=== PATIENT | female | born 1945 | race Caucasian/White ===

== ENCOUNTER → 2024-11-30 08:43 | Outpatient (REF) | payer MEDICARE, OTHER, SELFPAY ==
[2024-11-30 09:38] LABS: Hematocrit 38.8 % (37.0-47.0); Hemoglobin 13.0 g/dL (12.0-16.0); Mean Corp Hgb Conc. 33.5 g/dL (33.0-37.0); Mean Corpuscular Volume 100.8 fL (81.0-99.0); Nucleated Red Blood Cells % 0 %; Platelet Count 291 10^3/uL (130-400); Red Cell Dist. Width 12.1 % (11.5-14.5)
[2024-11-30 09:53] LABS: ALT (SGPT) 13 U/L (0-35); AST (SGOT) 19 U/L (14-36); Albumin 4.6 g/dl (3.5-5.0); Alkaline Phosphatase 65 U/L (38-126); Blood Urea Nitrogen 18 mg/dl (7-17); Calcium 9.7 mg/dl (8.4-10.2); Carbon Dioxide 25 mmol/L (22-30); Chloride 105 mmol/L (98-107); Glucose 104 mg/dl (70-99); Magnesium 2.0 mg/dl (1.6-2.3); Potassium 4.6 mmol/L (3.5-5.1); Sodium 138 mmol/L (135-145); Total Protein 7.9 g/dl (6.3-8.2); eGFR > 60.00
[2024-11-30 09:54] LABS: INR 1.32; PT 16.9 Sec (11.4-14.6)
== END ==
LOC: SDSPAT 08:43
PROVIDERS: ATTENDING PHYSICIAN Internal Medicine Cardiovascular Disease; FAMILY PHYSICIAN Family Medicine; OTHER PHYSICIAN Internal Medicine Cardiovascular Disease
DX: I48.91 Unspecified atrial fibrillation (principal)
CPT/HCPCS: 36415; 75572; 80053; 83735; 85025; 85610; 86850; 86900; 86901; 93005; Q9967

== ENCOUNTER → 2024-12-01 09:35 | Outpatient (REF) | payer MEDICARE, OTHER, SELFPAY | LOC: DHSLP 09:35 | PROVIDERS: ATTENDING PHYSICIAN Internal Medicine Cardiovascular Disease; FAMILY PHYSICIAN Family Medicine | DX: G47.33 Obstructive sleep apnea (adult) (pediatric) (principal) | CPT/HCPCS: 95800 ==

== ENCOUNTER 2024-12-29 05:51 | Day surgery (SDC) | payer MEDICARE, OTHER, SELFPAY ==
[2024-11-30 09:14] VITALS: BMI 27.6
--- NOTE | 2024-11-30 10:27 | HPS.HSE ---
Family Physician
-
Family Physician: Radha Sanders
Chief Complaint
-
Paroxysmal atrial fibrillation.
History of Present Illness
The patient is a 79 year old female presenting today for paroxysmal atrial fibrillation. She does report symptoms of fatigue, decreased exercise tolerance, shortness of breath, and mild palpitations associated with this diagnosis. She was
officially diagnosed with this arrhythmia in 2022; however, she notes that her arrhythmia episodes as of recently have been worsening in terms of frequency and duration. She is on current pharmacological therapy with Metoprolol Succinate. She does
report compliance with Eliquis for oral anticoagulation due to a CHADS-VASc of 4. She notes that her current symptoms associated with her arrhythmia greatly interfere with her activities of daily living and overall impact her quality of life. She is
interested in pursuing pulmonary vein isolation for further arrhythmia management. She denies any complaints today such as chest pain, shortness of breath at rest, nausea, vomiting, diarrhea, lightheadedness, dizziness, cough, sore throat, or fever.
Medical History
Past Medical History
Past Medical History: Reports Other
Additional Past Medical History:
1. Paroxysmal atrial fibrillation, pharmacological therapy with Metoprolol Succinate and oral anticoagulation with Eliquis.
2. Hypertension.
3. Mild aortic insufficiency.
4. Suspected obstructive sleep apnea, sleep study advised.
5. Colon polyps.
6. Diverticulosis.
7. Spinal stenosis.
8. Osteoarthritis, status post right total hip arthroplasty, 2011, and left total hip arthroplasty 2013.
9. Gout.
10. History of recurrent epistaxis.
11. Osteopenia.
12. Hearing impairment bilaterally.
13. Daily alcohol.
Past Surgical History: Reports Other
Additional Past Surgical History:
1. Right total hip arthroplasty.
2. Left total hip arthroplasty.
3. x2.
4. Appendectomy.
5. [place] teeth extraction.
6. Bilateral cataract extraction.
7. Multiple colonoscopies.
Social History
Tobacco: Non-smoker
Alcohol: Daily (She reportedly drinks 2 Manhattans daily. )
Personal:
Living: Other (She lives with her and daughter in a 2 story home. )
Family History
Family History: Not pertinent
Allergies / Home Medications
Allergy/Medication List:
Home medications:
1. Eliquis 5 mg p.o. twice a day.
2. Probiotic 1 capsule p.o. every evening.
3. Metoprolol Succinate 75 mg p.o. twice a day.
4. Valsartan 80 mg p.o. daily.
Allergies: No known allergies.
Review of Systems
-
A 12 point ROS was completed and negative except as noted: Yes
Physical Exam
Vital Signs
Blood pressure 151/76. Heart rate 64. Respirations 18. Pulse ox 99% on room air.
Height 5 feet, 1 inch. Weight 66.2 kg. BMI 27.6.
Physical Exam
General: Well Developed, Well Nourished and No Apparent Distress
HEENT: NormoCephalic, Moist mucous membranes, Atraumatic and PERRLA
Respiratory: Clear
Cardiac: Regular Rhythm
GI: Soft, Non Tender and Non Distended
Musculoskeletal: No Edema and Normal Gait & Station
Skin: Warm and Dry
Neuro: AO x 3 and Nonfocal/grossly intact
Laboratory Results
-
DIAGNOSTIC STUDIES as of 11/30/2024: White blood cell count 4.8. Hemoglobin 13.0. Platelet count 291,000. PT 16.9. INR 1.32. Sodium 138. Potassium 4.6. BUN 18. Creatinine 0.8. Glucose 104. Calcium 9.7. Magnesium 2.0. AST 19. ALT 13. Albumin 4.6.
Type and screen O positive.
EKG 11/30/2024: Sinus bradycardia with sinus arrhythmia. Otherwise normal EKG.
Chest CT 11/30/2024: Short segment common vestibule for the left superior and inferior pulmonary veins, fairly commonly seen and considered normal variant. No evidence for left atrial thrombus.
Echocardiogram 05/14/2023: Ejection fraction is 50-55%. Mild left ventricular hypertrophy. Mild aortic insufficiency. RVSP 26 mmHg.
Impression/Plan
-
IMPRESSION/PLAN:
1. Paroxysmal atrial fibrillation: The patient is in need of pulmonary vein isolation with Dr. Earnest Wilson on 12/29/2024. The benefits and risks of the procedure have been explained to the patient. The patient understands these risks and wishes to
proceed. She will not be required to undergo a pre-procedural transesophageal echocardiogram as she has been compliant with her home oral anticoagulation. She is aware to continue Eliquis uninterrupted prior to her ablation. She will take no
medications the morning of her ablation.
[2024-12-29] VITALS (13 sets, daily range): BP systolic 96–164; BP diastolic 47–81; BMI 27.6
--- NOTE | 2024-12-29 07:21 | ITS.CL.ABL ---
[facility] - Ablation
Ablation
Procedure Report:
Primary Retention Specialist: Dr Dusty Martinez
Procedure Date: 12/29/2024
Patient History:
Patient is a pleasant 79-year-old female with a past medical history significant for hypertension, long-term anticoagulation use, alcohol use, symptomatic paroxysmal atrial fibrillation.
See H&P for complete details.
Indication:
Symptomatic paroxysmal atrial fibrillation
Arrhythmia Specific History:
Prior Medical Therapies for Rate and Rhythm Control:
X Beta-yamileth
[ ] Calcium channel-yamileth
[ ] Amiodarone
[ ] Dronederone
[ ] Sotalol
[ ] Flecainide
[ ] Dofetilide
[ ] Options limited by bradycardia
[ ] Options limited by comorbid renal disease
Prior Procedural Therapies for AF/AFL:
[ ] Cardioversion
[ ] Pulmonary Vein Isolation
[ ] Posterior Wall Isolation
[ ] Additional lines (Specify)
[ ] Surgical Díaz-MAZE or PVI (Specify)
Procedure Performed:
X AF ablation procedure (59498) -- includes LA/CS pacing, trans-septal, 3D mapping, + ICE
[ ] +IV drug (94157)
[ ] +Other Arrhythmia (30742)
[ ] +Other AF Line/ablation (83362)
Risks and expected recovery has been explained in detail. Alternative options have been explored, and in a shared-decision making fashion we have decided that this was the most appropriate procedure.
Method
NPO status confirmed. Grounding pad applied. Defibrillator pads applied. Continuous surface ECG, pulse oximetry, and blood pressure were monitored. Procedure was performed under general anesthesia, with anesthesia services.
Both groins were clipped, prepped with Chloraprep, and draped in sterile fashion. Time out was called. Local anesthesia administered with bupivacaine. The right femoral vein was accessed for catheter placement, using ultrasound guidance (images
saved to record), micro-puncture needle/wire, and modified seldinger technique. 3 sheaths were placed. The following catheters were used:
[ ] Tacticath SE (D/F Curve) ablation catheter
X Viewflex 9Fr ICE catheter
X Inquiry decapolar 6Fr diagnostic catheter
[ ] CRD Hex 6Fr
X Agilis 13 Fr with PulseSelect PFA Catheter
X Advisor HD Grid Mapping Catheter, SE
[ ] Acuson AcuNav 8 Fr ICE catheter
[ ]Other: [ ]
Intracardiac ultrasound (ICE) was carefully advanced into the right atrium to guide sheath placement over a J-wire, catheter placement, guide trans-septal puncture, identify potential complications, identify anatomic structures and ensure proper
contact between ablation catheter and tissue.
Heparin was given prior to trans-septal puncture. Heparin was given to achieve and maintain a target ACT of 300-400 seconds throughout the procedure.
Trans-septal access was performed under ICE guidance. The trans-septal puncture was performed with a VersaCross RF wire through the steerable sheath. The wire was visualized as it entered the LA/LSPV and system advanced under ICE guidance and
fluoroscopy into the LA. The RF wire and sheath dilator were removed under negative pressure. LA pressure was measured and recorded.
ICE and 3D mapping was performed to identify relevant cardiac structures. A careful 3D map was created to assess for regions of low-voltage and abnormal electrogram signals using HD grid mapping catheter and PulseSelect catheter. Additional mapping
was performed as outlined below.
Prior to ablation, glycopyrrolate was provided. PulseSelect catheter was advanced over J-wire to the ostium of each vein. Pulmonary vein isolation was performed with ostial and antral lesions in a circumferential manner. Contact was visualized via
EAM, ICE, fluoroscopy, and EGM signals.
Following completion of ablation lesions, a post-ablation voltage/activation map was performed in sinus rhythm. Entrance and exit block were confirmed for each vein.
Catheter and sheath were removed from the left atrium and post-ablation intracardiac echo evaluation was consistent with pre-ablation with no changes and no pericardial effusion and there is no left atrial thrombus or left ventricle thrombus seen.
Electrophysiology study was performed. Hemostasis was obtained with figure of 8 stitch for each groin and with manual pressure. Protamine was used for reversal.
Estimated Blood Loss
5 mL
Complications
None
Fluoroscopy: 1.9 minutes; 4.56 mGy; DAP 0.442
LA Pressure: Pre 1 mmHg, post 4 mmHg
Baseline Intervals:
Rhythm: SR
IL: 198 ms
QRS: 95 ms
QT: 400 ms
QTc: 429 ms
A-A: 868 ms
R-R: 868 ms
Post-Procedure Intervals:
IL: 191 ms
QRS: 101 ms
QT: 420 ms
QTc: 454 ms
A-A: 856 ms
R-R: 856 ms
AVWB: 360 ms
AERP: 600/230 ms
Recommendations
- Bedrest with straight-leg precautions as ordered
- Anticipate same day discharge if patient meeting clinical metrics
- Resume home medications as indicated
- Ok to resume anticoagulation tonight if patient and groin sites stable
- Plan for follow-up in office as scheduled
Earnest Wilson, DO, FACC, [facility]
Clinical Cardiac Load Out Person
cc: Dr Dusty Martinez, Dr Radha Sanders
[2024-12-29 08:37] LABS: ACT-LR - POC 261 Seconds (116-155)
[2024-12-29 08:57] LABS: ACT-LR - POC 363 Seconds (116-155)
[2024-12-29 09:22] LABS: ACT-LR - POC 397 Seconds (116-155)
[2024-12-29 09:47] LABS: ACT-LR - POC 149 Seconds (116-155)
[2024-12-29] MEDS: TYLENOL 650 MG PO (11:16)
--- NOTE | 2024-12-29 14:32 | W.PN.UPDATE ---
Update Note
Progress Note Update
Pt seen post PFA. Right groin site without ht/bleeding, non tender. Post EKG NSR 62, no acute changes. Resume eliquis tonight at usual time, continue other meds as before. Followup with Dr. Martinez as scheduled. Home today if groin site/tele remain
stable.
[2024-12-29] MEDS: REFRESH CELLUVISC GEL 1 DROPS OPHTH (14:46)
== END 2024-12-29 14:50 | disposition home or self-care (01) ==
LOC: CATH 05:51
PROVIDERS: ATTENDING PHYSICIAN Internal Medicine Cardiovascular Disease; FAMILY PHYSICIAN Family Medicine; OTHER PHYSICIAN Internal Medicine Cardiovascular Disease
DX: I48.0 Paroxysmal atrial fibrillation (principal); I10 Essential (primary) hypertension; I35.1 Nonrheumatic aortic (valve) insufficiency; H91.93 Unspecified hearing loss, bilateral; M10.9 Gout, unspecified; M85.80 Other specified disorders of bone density and structure, unspecified site; Z79.01 Long term (current) use of anticoagulants; Z79.899 Other long term (current) drug therapy; Z86.0100 Personal history of colon polyps, unspecified; M19.90 Unspecified osteoarthritis, unspecified site; Z90.49 Acquired absence of other specified parts of digestive tract; Z96.643 Presence of artificial hip joint, bilateral; Z98.41 Cataract extraction status, right eye; Z98.42 Cataract extraction status, left eye
CPT/HCPCS: C1732; C1894; C1730; C1769; C1733; 85347; 86900; 86901; 93005; 93656